=== PATIENT | female | born 1995 | race Caucasian/White ===

== ENCOUNTER → 2017-05-24 06:20 | Outpatient (CLI) | payer MEDICAID, SELFPAY ==
--- NOTE | 2017-05-24 06:31 | MRI_ITS ---
STUDY: MRI RIGHT FOREFOOT WITHOUT CONTRAST REASON FOR EXAM: Female, 22 years old. Cellulitis. Neuroma surgery May 02, 2017 TECHNIQUE: Standardized fat and water weighted pulse sequences were obtained in all 3 orthogonal planes. COMPARISON: None. FINDINGS: There is postoperative changes on the dorsal aspect of the second intermetatarsal and interdigital region. There is adjacent edema. No abscess. Normal metatarsophalangeal joint of the hallux. There is a bipartite fibula sesamoid. Normal interphalangeal joint of the hallux. Normal proximal and distal phalanges of the great toe. Normal medial and lateral heads of the flexor hallucis brevis tendons. Normal flexor and extensor hallucis longus tendons. Normal second through fifth metatarsophalangeal (MTP) joints. Normal interphalangeal joints of the second through fifth toes. Normal proximal, middle and distal phalanges of the second through fifth toes. Normal first through fourth intermetatarsal spaces. Normal flexor and extensor tendons of the second through fifth toes. Normal visualized metatarsi. Normal intrinsic muscles of the forefoot. MRI/Lower Ext/No Jt/w/o IMPRESSION: Postoperative changes with edema. No dominant abscess or collection. Electronically Signed: Fito Hoyt MD at 14:59 EST , Service support ,
== END ==
PROVIDERS: Visit Provider Podiatrist Foot & Ankle Surgery
DX: L03.119 Cellulitis of unspecified part of limb (principal); Z98.890 Other specified postprocedural states
CPT/HCPCS: 73718

== ENCOUNTER 2017-05-25 12:25 | Inpatient (IN) | payer MEDICAID, SELFPAY ==
[2017-05-25 12:41] VITALS: BMI 52.3; BMI 52.4
[2017-05-25 12:50] VITALS: BP 153/85; PULSE 120; RESP 20; TEMP 37.1; O2SAT 98
--- NOTE | 2017-05-25 14:59 | PCM.HP.STD ---
Problem List (1) Vitamin D deficiency Status: Chronic (2) Anxiety Status: Chronic (3) Depression Status: Chronic (4) Tachycardia Status: Chronic (5) Migraine Status: Chronic (6) Seasonal allergies Status: Chronic (7) Cellulitis of right foot Status: Acute History of Present Illness Date of Admission: 05/25/17 Chief Complaint: Right foot incision redness and drainage The patient is a 22 year old F who presents from Dr. Michelle, Podiatry office due to right foot incision redness and drainage. 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 On follow-up appointment approximately 1 week ago, patient was noted to have purulent drainage from incision site as well as redness. She was started on ciprofloxacin and Bactrim at that time. She states her cultures showed skin may. Patient had additional follow-up with podiatry today to check for improvement with antibiotic therapy. Patient states there was further purulent drainage from incision site. Patient states Dr. Michelle mentioned he thought she may be allergic to the dissolvable sutures. Per patient, her biological father is allergic to sutures. Podiatry plans on debridement of right foot surgical site tomorrow. Patient's past medical history includes chronic migraines, anxiety, depression, seasonal allergies, vitamin D deficiency. She reports an anaphylactic reaction to penicillins when she was an infant's. Patient states her mom told her she stopped breathing. Patient denies fever, chills. Denies pain of the right foot. She is able to bear weight without difficulty. She denies nausea, vomiting. Denies other associated complaints. Past Medical History Past Medical History (Chronic Problems): Chronic Problems Vitamin D deficiency (Chronic) Anxiety (Chronic) Depression (Chronic) Tachycardia (Chronic) Migraine (Chronic) Seasonal allergies (Chronic) Allergies amoxicillin Allergy (Verified 01/17/17 20:43) Anaphylaxis Penicillins Allergy (Verified 01/17/17 20:43) Anaphylaxis spider venom Allergy (Verified 01/17/17 20:43) Swelling venom-honey bee Allergy (Verified 01/17/17 20:43) Anaphylaxis Home Medications: Ambulatory Orders Medication Instructions Recorded Cholecalciferol (Vitamin D3) 1,000 unit PO DAILY 01/17/17 [Vitamin D3] Cyanocobalamin (Vitamin B-12) 1,000 mcg PO DAILY 01/17/17 [Vitamin B12] Duloxetine Hcl [Cymbalta] 60 mg PO DAILY 01/17/17 Propranolol HCl 10 mg PO DAILY 01/17/17 Riboflavin [Vitamin B-2] 50 mg PO DAILY 01/17/17 Bupropion HCl [Wellbutrin Xl] 150 mg PO DAILY 05/25/17 Calcium Carbonate [Tums] 500 mg PO Q6H PRN PRN 05/25/17 Fexofenadine HCl [Holly Allergy] 60 mg PO BID PRN PRN 05/25/17 Fluticasone 0.05% [Flonase Nasal 1 spray NASAL BID PRN PRN 05/25/17 [place]] Surgical History: tonsillectomy, - - Status post right foot Mann's neuroma surgery. [place] teeth extraction. 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 Lives: Spouse/ Significant Other Smoking Status: Never smoker Alcohol: Rare Drugs: None - *Family History Maternal History Items: Seizures Paternal History Items: Diabetes, Heart Disease Review of Systems Constitutional: Denies: Chills, Fever, Weight Change HEENT: Denies: Head Aches, Sinus Congestion, Sinus Drainage Cardiovascular: Denies: Chest Pain, Palpitations Respiratory: Denies: Cough, Shortness of breath at rest, Sputum production Gastrointestinal: Denies: Abdominal Pain, Nausea, Vomiting Genitourinary: Denies: Dysuria Musculoskeletal: Denies: Joint Pain, Joint Tenderness Skin: Denies: Rash, Wounds Neurological: Denies: Numbness, Tingling, Focal weakness Psychiatric: Reports: Anxiety, Depression Hematologic/ Lymphatic: Denies: Easy Bruising, Easy Bleeding VTE Information - Inpt Only VTE Present on Admission: No VTE Mechan Device Prophylaxis: None Reason prophylaxis not ordered:: Treatment Not Indicated Patient Problems: Active and Suspected Problems Cellulitis of right foot (Acute) - Physical Exam General: Alert, Oriented x3, Cooperative, No apparent distress HEENT: Atraumatic, PERRLA, EOMI, Normocephalic Neck: Supple, No JVD, Negative Carotid Bruits Lungs: Clear to auscultation, Normal air movement Cardiovascular: Normal S1, Normal S2, No murmurs, Tachycardic Abdomen: Bowel Sounds Present, Soft, Non Tender, Obese Extremities: No clubbing, No cyanosis, No edema, Capillary Refill Less than 3 Seconds Skin: No rashes, No breakdown, - - Postop incision right medial foot erythematous, blanchable. Small amount of purulence drainage. Musculoskeletal: No Tenderness to Palpation of Joints or Extremities Neurological: Cranial nerves II-XII grossly intact, Neuro grossly intact Psych/Mental Status: Normal Affect, Appropriate Vital Signs Temp Pulse Resp BP Pulse Ox 98.8 F 120 H 20 H 153/85 H 98 05/25/17 12:50 05/25/17 12:50 05/25/17 12:50 05/25/17 12:50 05/25/17 12:50 Oxygen Delivery Method Room Air Weight: 138.346 kg Body Mass Index (BMI) 52.3 Laboratory Tests Past 24 Hrs 05/25/17 05/25/17 14:42 14:42 WBC Pending RBC Pending Hgb Pending Hct Pending MCV Pending MCH Pending MCHC Pending RDW Pending RDW Differential Pending Plt Count Pending Sodium Pending Potassium Pending Chloride Pending Carbon Dioxide Pending Anion Gap Pending BUN Pending Creatinine Pending Est GFR (MDRD) Af Amer Pending Est GFR (MDRD) Non-Af Pending BUN/Creatinine Ratio Pending Glucose Pending Calcium Pending Total Bilirubin Pending AST Pending ALT Pending Alkaline Phosphatase Pending Total Protein Pending Albumin Pending Assessment/Plan Active and Suspected Problems Cellulitis of right foot (Acute) 1. Right foot cellulitis status post Mann's neuroma surgery, failed outpatient antibiotic therapy-patient underwent surgery for Mann's neuroma on right foot 05/04/[address] Michelle, podiatry who she has been following with as outpatient. Patient was started on ciprofloxacin and Bactrim approximately 1 week ago due to increased redness of the foot and purulent drainage. She returned for follow-up appointment today and had continued erythema and drainage from incision site. Dr. Michelle plans for I&D tomorrow. Patient states previous wound cultures showed normal skin may. These were completed at [facility] and not available in our records. Wound nurse evaluated patient and was able to get sample for culture. Patient reports an allergy to penicillins. Right foot with erythema surrounding incision site which is blanchable, minute amount of purulent drainage was able to be extracted with pressing of the site. Patient denies pain. MRI of the right foot showed postoperative changes with edema. No dominant abscess or collection. NPO at midnight. PRN pain regimen. Wound RN consulted. Wound culture sent. IV vancomycin. Consult ID. Check MRSA PCR. 2. Tachycardia/palpitations-continue propanolol. 3. Seasonal allergies-continue Holly and Flonase regimen. 4. Chronic migraines-continue propanolol. 5. Vitamin D deficiency-continue vitamin D supplementation. 6. Anxiety/depression-continue bupropion and duloxetine regimen. 7. Obesity-encouraged lifestyle and dietary modifications. DVT prophylaxis-not indicated due to low risk. This patient was seen by FLORENTIN Camacho under the supervision of Dr. Lopez.
[2017-05-25 15:06] LABS: Hemoglobin 13.1 g/dl (12.0-15.0); Mean Corpuscular Volume 81.5 fL (81-99); Mean Platelet Vol. 9.7 fl (6.2-12.0); Platelet Count 383 K/mm3 (150-450); RBC Distribution Width CV 15.3 % (11.6-14.6); Red Blood Count 5.03 M/mm3 (4.2-5.4); White Blood Count 8.8 K/mm3 (4.4-11.0)
[2017-05-25 15:13] LABS: Scan Indicated on CBC? Y/N NO
[2017-05-25 15:28] LABS: ALB/GLOB Ratio 0.8 RATIO (0.9-2.4); AST(SGOT) 13 U/L (15-37); Alanine Aminotransfer ALT/SGPT 25 U/L (13-56); Albumin, Serum 3.7 g/dL (3.2-5.0); Alkaline Phosphatase 81 U/L (45-117); Anion Gap 11 (5-15); BUN 12 mg/dL (7-18); BUN/Creat Ratio 10.6 RATIO (10-20); Calcium,Total 9.1 mg/dL (8.5-10.1); Chloride 101 mmol/L (98-107); Creatinine, Serum 1.13 mg/dL (0.55-1.02); EST Glomerular Filtration Rate 63 mL/min (>60); Est Glom Filt Rate - Afr Amer 76 mL/min (>60); Estimated Creatinine Clearance 66.29 ml/min; Globulin 4.6 g/dL (2.2-4.2); Glucose 88 mg/dL (74-106); Potassium 3.9 mmol/L (3.5-5.1); Protein, Total 8.3 g/dL (6.4-8.2); Sodium Level 138 mmol/L (136-145)
[2017-05-25] MEDS: 0.9% NaCl Peripheral Flush Adult/Peds IV ×3 (15:45→23:54)
[2017-05-25] MEDS: DiphenhydrAMINE 50 MG/ML Syringe 25 MG IV ×2 (17:42→23:54)
[2017-05-25 19:15] LABS: M R Staph aureus DNA By PCR Negative (Negative); Probe Check PASS; Specimen Processing Control PASS; Staph aureus DNA By PCR NEGATIVE (Negative)
[2017-05-25 20:25] VITALS: BP 114/47; PULSE 121; RESP 18; TEMP 36.8; O2SAT 98
[2017-05-25] MEDS: Propranolol 10 MG Tablet PO (22:03)
[2017-05-26] VITALS (9 sets, daily range): BP systolic 107–124; BP diastolic 57–84; PULSE 98–110; RESP 18; TEMP 36.6–37.2; O2SAT 97–100; BMI 52.3
--- NOTE | 2017-05-26 05:55 | EKG12_ITS ---
Test Reason : PRE-OP Blood Pressure : / mmHG Vent. Rate : 096 BPM Atrial Rate : 096 BPM P-R Int : 150 ms QRS Dur : 074 ms QT Int : 366 ms P-R-T Axes : 027 016 020 degrees QTc Int : 462 ms Normal sinus rhythm Normal ECG When compared with ECG of 17-JAN-2017 20:44, No significant change was found Confirmed by LAUREL MILLER, CAL ([id number]), editor dictionary JAYDA MCDOWELL ([id number]) on 06/08/2017 1:33:54 PM Referred By: ISAAC Confirmed By:CAL BARRAGAN MD
[2017-05-26] MEDS: Propranolol 10 MG Tablet PO ×3 (06:00→22:16)
[2017-05-26 06:18] LABS: Absolute Neutrophil Count 4.7 X10^3/uL (2.0-7.7); Basophil# 0.04 X10^3/uL; Basophil% 0.5 % (0-1); Eosinophil# 0.25 X10^3/uL; Eosinophils% 3.1 % (0-5); Hematocrit 36.7 % (37-47); Hemoglobin 11.4 g/dl (12.0-15.0); Lymphocyte % 31.8 % (19-41); Mean Corp Hgb Conc 31.1 g/gl (32-36); Mean Corpuscular Hgb 25.6 pg (27.0-32.0); Mean Corpuscular Volume 82.3 fL (81-99); Mean Platelet Vol. 9.9 fl (6.2-12.0); Monocyte# 0.54 X10^3/uL; Monocyte% 6.6 % (0-10); Neutrophil # 4.73 X10^3/uL (2.7-7.7); Neutrophil % 57.8 % (47-70); Platelet Count 333 K/mm3 (150-450); RBC Distribution Width CV 15.6 % (11.6-14.6); RBC Distribution Width SD 46.9 fl (35.1-43.9); Red Blood Count 4.46 M/mm3 (4.2-5.4); White Blood Count 8.2 K/mm3 (4.4-11.0)
[2017-05-26 06:26] LABS: POSITIVE COUNT NO; POSITIVE DIFFERENTIAL NO; POSITIVE MORPHOLOGY NO
[2017-05-26 06:33] LABS: Anion Gap 8 (5-15); BUN 16 mg/dL (7-18); BUN/Creat Ratio 15.1 RATIO (10-20); Calcium,Total 8.6 mg/dL (8.5-10.1); Chloride 102 mmol/L (98-107); Creatinine, Serum 1.06 mg/dL (0.55-1.02); EST Glomerular Filtration Rate 68 mL/min (>60); Est Glom Filt Rate - Afr Amer 82 mL/min (>60); Estimated Creatinine Clearance 70.67 ml/min; Glucose 87 mg/dL (74-106); Sodium Level 135 mmol/L (136-145)
[2017-05-26 07:26] LABS: Internal QC Validated? YES +Cl - CLEAR BKGD; Pregnancy, Urine Negative Negative
[2017-05-26] MEDS: DULoxetine Hcl 60 MG Capsule PO (08:38)
--- NOTE | 2017-05-26 09:49 | CASEMGMT ---
Addendum entered by Odalys Gibbs 05/26/17 10:05: Chart Review: LACYashira Strata 1 Original Note: The patient is a 22 year old F who presents from Dr. Michelle, Podiatry office due to right foot incision redness and drainage. 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 On follow-up appointment approximately 1 week ago, patient was noted to have purulent drainage from incision site as well as redness. She was started on ciprofloxacin and Bactrim at that time. She states her cultures showed skin may. Patient had additional follow-up with podiatry today to check for improvement with antibiotic therapy. Patient states there was further purulent drainage from incision site. Patient states Dr. Michelle mentioned he thought she may be allergic to the dissolvable sutures. Podiatry plans on debridement of right foot surgical site tomorrow. Patient's past medical history includes chronic migraines, anxiety, depression, seasonal allergies, vitamin D deficiency. She is able to bear weight without difficulty. Patient is normally independent, drives, and is a student. Patient does have insurance coverage, including a prescription benefit. The patient uses [facility]. No home-going needs are identified at this time. RN CM will continue to follow hospital course and will provide case management interventions should the need arise. Disposition Plan: Home with support of family TMERYL Barrios, RN-BC, CCM
--- NOTE | 2017-05-26 10:27 | PCM.PROGNOTE ---
Patient Problems: Active and Suspected Problems Cellulitis of right foot (Acute) Subjective: Chief complaint: Follow-up after admission for possible right foot cellulitis in context of recent history of right foot surgery for Mann's neuroma. Patient seen and examined. No acute events overnight. This morning, she complained of bilateral hand itching because of the vancomycin. The skin rash that she got yesterday after the vancomycin has been getting better. Denies any other complaints. Denied fever chills. Her vital signs are stable. - Physical Exam General: Alert, Oriented x3, Cooperative, No apparent distress HEENT: Atraumatic, PERRLA, EOMI Oral: Moist Mucosa, No Gingival or Mucosal Lesions/ Ulcerations Neck: Supple, No JVD, Trachea Midline, Thyroid Normal Size and Texture Lungs: Clear to auscultation, Normal air movement, No rhonchi, No wheeze, No rales Cardiovascular: Regular rate, Regular Rhythm, Normal S1, Normal S2, PMI Normal Abdomen: Bowel Sounds Present, Soft, Non Tender, Non-Distended, No Hepato-splenomegaly, Obese Extremities: No clubbing, No cyanosis, No edema Skin: No rashes, Ulcer/ Wound Lymphatic: No Cervical, Supraclavicular, or Inguinal Adenopathy Neurological: Cranial nerves II-XII grossly intact, Motor Exam 5/5 strength throughout Psych/Mental Status: Normal Affect, Appropriate, Alert and oriented to time, place, person, mood and affect Vital Signs Temp Pulse Resp BP Pulse Ox 98.9 F 106 H 18 116/80 100 05/26/17 08:40 05/26/17 08:40 05/26/17 08:40 05/26/17 08:40 05/26/17 08:40 Oxygen Delivery Method Room Air Weight: 304 lb 14.389 oz Body Mass Index (BMI) 52.3 Intake and Output for Last 24 Hours 05/24/17 05/25/17 05/26/17 23:59 23:59 23:59 Intake Total 1550 / 1550 300 / 300 Balance 1550 / 1550 300 / 300 Laboratory Tests Past 24 Hrs 05/25/17 05/25/17 05/25/17 14:42 14:42 15:10 WBC 8.8 RBC 5.03 Hgb 13.1 Hct 41.0 MCV 81.5 MCH 26.0 L MCHC 32.0 RDW 15.3 H RDW Differential 45.0 H Plt Count 383 MPV 9.7 Immature Gran % (Auto) Neut % (Auto) Lymph % (Auto) [place] % (Auto) Eos % (Auto) Baso % (Auto) Absolute Neuts (auto) Absolute Lymphs (auto) Total Counted Sodium 138 Potassium 3.9 Chloride 101 Carbon Dioxide 26.0 Anion Gap 11 BUN 12 Creatinine 1.13 H Estim Creat Clear Calc 66.29 Est GFR (MDRD) Af Amer 76 Est GFR (MDRD) Non-Af 63 BUN/Creatinine Ratio 10.6 Glucose 88 Calcium 9.1 Total Bilirubin 0.30 AST 13 L ALT 25 Alkaline Phosphatase 81 Total Protein 8.3 H Albumin 3.7 Globulin 4.6 H Albumin/Globulin Ratio 0.8 L Urine Test S.aureus Protein A PCR NEGATIVE MRSA (PCR) Negative 05/26/17 05/26/17 05/26/17 05:46 05:46 07:05 WBC 8.2 RBC 4.46 Hgb 11.4 L Hct 36.7 L MCV 82.3 MCH 25.6 L MCHC 31.1 L RDW 15.6 H RDW Differential 46.9 H Plt Count 333 MPV 9.9 Immature Gran % (Auto) 0.200 Neut % (Auto) 57.8 Lymph % (Auto) 31.8 [place] % (Auto) 6.6 Eos % (Auto) 3.1 Baso % (Auto) 0.5 Absolute Neuts (auto) 4.7 Absolute Lymphs (auto) 2.60 Total Counted Not Reportable Sodium 135 L Potassium 4.0 Chloride 102 Carbon Dioxide 25.0 Anion Gap 8 BUN 16 Creatinine 1.06 H Estim Creat Clear Calc 70.67 Est GFR (MDRD) Af Amer 82 Est GFR (MDRD) Non-Af 68 BUN/Creatinine Ratio 15.1 Glucose 87 Calcium 8.6 Total Bilirubin AST ALT Alkaline Phosphatase Total Protein Albumin Globulin Albumin/Globulin Ratio Urine Test Negative S.aureus Protein A PCR MRSA (PCR) Assessment/Plan Active and Suspected Problems Cellulitis of right foot (Acute) This is a 22 years old female patient directly admitted to the hospital because of right foot incision redness and drainage in context of recent history of surgery for Mann's neuroma and she was found to have suspected right foot cellulitis. #1 suspected right foot cellulitis: With failure of outpatient therapy. It is not clear if this patient has acute cellulitis or this is seroma. She was started on IV vancomycin yesterday and she developed skin rash, vancomycin was discontinued. She is afebrile, no leukocytosis. Infectious disease consulted, recommended to restart vancomycin was on fusion as well as oral ciprofloxacin. Podiatry surgery consulted, plan for surgery this afternoon. #2 tachycardia/palpitation: Heart rate has been around 100, blood pressure stable. Continue propranolol. #3 anxiety/depression: Continue Wellbutrin and Cymbalta. #4 seasonal allergies: Continue Benadryl and Flonase. #5 migraine: Continue propranolol. #6 DVT prophylaxis: Low risk patient, no prophylaxis indicated. This note was generated with [employer] dictation software. It may contain incorrect words, spelling, and punctuation that were not noted in checking the note before signing. Code Visit Inpatient E&M: 57239 Subs Hosp L2
--- NOTE | 2017-05-26 10:52 | CON.PCM_ITS ---
Problem List (1) Cellulitis of right foot Status: Acute Reason for Consult: foot infection Consulted by: Dr. Lopez History of Present Illness: The patient is a 22 year old F with 04/29/17 R foot Mann's neuroma resection by Dr. Michelle. Had been doing well until a week ago when she noticed redness around incision site. Saw Dr. Michelle, clear/bloody fluid was able to be expressed, and some stitches removed. Started on bactrim/cipro. Redness improved somewhat, went back yesterday, pus was able to be expressed, so sent to hospital. Given iv vanc, developed redness/itching which quickly resolved with stopping infusion and giving benadryl. OR planned for today for exploration/debridement. No fever, no h/o MRSA. Full ROS performed and neg except as noted above. - Medical History Past Medical History (Chronic Problems): Chronic Problems Vitamin D deficiency (Chronic) Anxiety (Chronic) Depression (Chronic) Tachycardia (Chronic) Migraine (Chronic) Seasonal allergies (Chronic) Allergies/Adverse Reactions: Allergies amoxicillin Allergy (Verified 01/17/17 20:43) Anaphylaxis Penicillins Allergy (Verified 01/17/17 20:43) Anaphylaxis spider venom Allergy (Verified 01/17/17 20:43) Swelling venom-honey bee Allergy (Verified 01/17/17 20:43) Anaphylaxis vancomycin Adverse Reaction (Verified 05/26/17 10:43) Itching and redness Red Man Home Medications: Ambulatory Orders Medication Instructions Recorded Cholecalciferol (Vitamin D3) 1,000 unit PO DAILY 01/17/17 [Vitamin D3] Cyanocobalamin (Vitamin B-12) 1,000 mcg PO DAILY 01/17/17 [Vitamin B12] Duloxetine Hcl [Cymbalta] 60 mg PO DAILY 01/17/17 Propranolol HCl 10 mg PO DAILY 01/17/17 Riboflavin [Vitamin B-2] 50 mg PO DAILY 01/17/17 Bupropion HCl [Wellbutrin Xl] 150 mg PO DAILY 05/25/17 Calcium Carbonate [Tums] 500 mg PO Q6H PRN PRN 05/25/17 Fexofenadine HCl [Holly Allergy] 60 mg PO BID PRN PRN 05/25/17 Fluticasone 0.05% [Flonase Nasal 1 spray NASAL BID PRN PRN 05/25/17 [place]] - Social History SMOKING STATUS:: Never smoker Vital Signs Temp Pulse Resp BP Pulse Ox 98.9 F 106 H 18 116/80 100 05/26/17 08:40 05/26/17 08:40 05/26/17 08:40 05/26/17 08:40 05/26/17 08:40 Oxygen Delivery Method Room Air Weight: 138.3 kg Body Mass Index (BMI) 52.3 Laboratory Tests Past 24 Hrs 05/25/17 05/25/17 05/25/17 14:42 14:42 15:10 WBC 8.8 RBC 5.03 Hgb 13.1 Hct 41.0 MCV 81.5 MCH 26.0 L MCHC 32.0 RDW 15.3 H RDW Differential 45.0 H Plt Count 383 MPV 9.7 Immature Gran % (Auto) Neut % (Auto) Lymph % (Auto) [place] % (Auto) Eos % (Auto) Baso % (Auto) Absolute Neuts (auto) Absolute Lymphs (auto) Total Counted Sodium 138 Potassium 3.9 Chloride 101 Carbon Dioxide 26.0 Anion Gap 11 BUN 12 Creatinine 1.13 H Estim Creat Clear Calc 66.29 Est GFR (MDRD) Af Amer 76 Est GFR (MDRD) Non-Af 63 BUN/Creatinine Ratio 10.6 Glucose 88 Calcium 9.1 Total Bilirubin 0.30 AST 13 L ALT 25 Alkaline Phosphatase 81 Total Protein 8.3 H Albumin 3.7 Globulin 4.6 H Albumin/Globulin Ratio 0.8 L Urine Test S.aureus Protein A PCR NEGATIVE MRSA (PCR) Negative 05/26/17 05/26/17 05/26/17 05:46 05:46 07:05 WBC 8.2 RBC 4.46 Hgb 11.4 L Hct 36.7 L MCV 82.3 MCH 25.6 L MCHC 31.1 L RDW 15.6 H RDW Differential 46.9 H Plt Count 333 MPV 9.9 Immature Gran % (Auto) 0.200 Neut % (Auto) 57.8 Lymph % (Auto) 31.8 [place] % (Auto) 6.6 Eos % (Auto) 3.1 Baso % (Auto) 0.5 Absolute Neuts (auto) 4.7 Absolute Lymphs (auto) 2.60 Total Counted Not Reportable Sodium 135 L Potassium 4.0 Chloride 102 Carbon Dioxide 25.0 Anion Gap 8 BUN 16 Creatinine 1.06 H Estim Creat Clear Calc 70.67 Est GFR (MDRD) Af Amer 82 Est GFR (MDRD) Non-Af 68 BUN/Creatinine Ratio 15.1 Glucose 87 Calcium 8.6 Total Bilirubin AST ALT Alkaline Phosphatase Total Protein Albumin Globulin Albumin/Globulin Ratio Urine Test Negative S.aureus Protein A PCR MRSA (PCR) - Other Studies Radiology: [] reviewed Other Studies: [] Route of nutrition/ use of supplements: [] Nutritional Intake: [] IV Site: [] Santos Catheter: [] - Physical Exam General: Alert, Oriented x3, Cooperative, No apparent distress HEENT: Atraumatic, PERRLA, EOMI Neck: Supple, No Nodes Lungs: Clear to auscultation, Normal air movement Cardiovascular: Regular rate, Normal S1, Normal S2, No murmurs Abdomen: Bowel Sounds Present, Soft, Non Tender, Non-Distended, Obese Extremities: No clubbing, No cyanosis, No edema Skin: Incision - R foot incision wrapped Musculoskeletal: No Tenderness to Palpation of Joints or Extremities Neurological: Cranial nerves II-XII grossly intact Psych/Mental Status: Normal Affect, Appropriate - Assessment/Plan Antibiotics: [] Assessment/Plan: [] Active and Suspected Problems Cellulitis of right foot (Acute) - concern for deep vs superficial surgical site infection. She reports her dad has had reaction to sutures in the past. H /o anaphylaxis with PCN as an infant. Had [place] with vanc last night. Had some improvement with bactrim/cipro as an outpatient. PCR neg for staph aureus here. Will restart vanc at slower infusion rate and restart cipro for GNR coverage while surg cxs are pending. Thank you, will follow.
[2017-05-26] MEDS: Hydrocortisone 2.5% Crm 1 APPLIC TOPICAL ×2 (11:38→19:37)
--- NOTE | 2017-05-26 11:58 | NURSING ---
report called to [facility] for surgery. spoke with HERMILA Sampson.
--- NOTE | 2017-05-26 12:13 | SUR.PREOP ---
PT. TO [facility] FROM [facility]. SHE DENIES PAIN OR OTHER C/O AT THIS TIME. FAMILY AT BEDSIDE.
--- NOTE | 2017-05-26 12:55 | CON.PCM_ITS ---
Reason for Consult Date of Consultation: 05/26/17 Reason for Consultation: CELLULITIS OF RIGHT FOOT History of Present Illness: The patient is a 22 year old F who underwent neuroma excision on May 02 of her right foot. she was placed on bactrim as prophylaxis for 5 days following surgery. she was doing very well until last tuesday when she developed some mild redness to her foot but did not call the office to inform us. she was seen on Tuesday last week where there was redness to her right foot, mild serous drainage. a sterile culture was performed and has now since finalized as gram postitive cocci/skin may. wbc last tuesday was 11.6 but has now since normalized being on bactrim/cipro. I evaluated patient this past tuesday and her redness to her foot was improving but there was still redness to interspace distally. MRI was ordered and was found to be negative for osteomyelitis or abscess. I evaluated patient again yesterday and found similar findings as tuesday with redness to distal incision now with sero purulent discharge. given this persistent redness to this location, I did discuss admission to hospital for incision and drainage of right foot with irrgiation fo wound and removal of deep suture. it should be noted that patient informs me last week that her father had similar issues with suture. patient denies n/v/f/c. she is on vancomycin and cipro. she did have reaction to vanco but felt to be due to infusion time. [] Past Medical History Past Medical History (Chronic Problems): Chronic Problems Vitamin D deficiency (Chronic) Anxiety (Chronic) Depression (Chronic) Tachycardia (Chronic) Migraine (Chronic) Seasonal allergies (Chronic) Allergies amoxicillin Allergy (Verified 01/17/17 20:43) Anaphylaxis Penicillins Allergy (Verified 01/17/17 20:43) Anaphylaxis spider venom Allergy (Verified 01/17/17 20:43) Swelling venom-honey bee Allergy (Verified 01/17/17 20:43) Anaphylaxis vancomycin Adverse Reaction (Verified 05/26/17 10:43) Itching and redness Red Man Home Medications: Ambulatory Orders Medication Instructions Recorded Cholecalciferol (Vitamin D3) 1,000 unit PO DAILY 01/17/17 [Vitamin D3] Cyanocobalamin (Vitamin B-12) 1,000 mcg PO DAILY 01/17/17 [Vitamin B12] Duloxetine Hcl [Cymbalta] 60 mg PO DAILY 01/17/17 Propranolol HCl 10 mg PO DAILY 01/17/17 Riboflavin [Vitamin B-2] 50 mg PO DAILY 01/17/17 Bupropion HCl [Wellbutrin Xl] 150 mg PO DAILY 05/25/17 Calcium Carbonate [Tums] 500 mg PO Q6H PRN PRN 05/25/17 Fexofenadine HCl [Holly Allergy] 60 mg PO BID PRN PRN 05/25/17 Fluticasone 0.05% [Flonase Nasal 1 spray NASAL BID PRN PRN 05/25/17 [place]] Surgical History: tonsillectomy, - - Status post right foot Mann's neuroma surgery. [place] teeth extraction. 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 good mood and affect derm: the right foot has surgical incision that is healed proximally but has persistent redness distally with eschar. there is jarred-wound erythema along distal incision. scant drainage noted on exam. m/s. no pain to right foot. 2nd and 3rd toes are numb consistent with neuroma excision. - Physical Exam Vital Signs Temp Pulse Resp BP Pulse Ox 98.8 F 109 H 18 114/62 100 05/26/17 11:33 05/26/17 11:33 05/26/17 11:33 05/26/17 11:33 05/26/17 11:33 Oxygen Delivery Method Room Air Weight: 138.3 kg Body Mass Index (BMI) 52.3 Intake and Output for Last 24 Hours 05/24/17 05/25/17 05/26/17 23:59 23:59 23:59 Intake Total 1550 / 1550 600 / 600 Balance 1550 / 1550 600 / 600 Laboratory Tests Past 24 Hrs 05/25/17 05/25/17 05/25/17 14:42 14:42 15:10 WBC 8.8 RBC 5.03 Hgb 13.1 Hct 41.0 MCV 81.5 MCH 26.0 L MCHC 32.0 RDW 15.3 H RDW Differential 45.0 H Plt Count 383 MPV 9.7 Immature Gran % (Auto) Neut % (Auto) Lymph % (Auto) [place] % (Auto) Eos % (Auto) Baso % (Auto) Absolute Neuts (auto) Absolute Lymphs (auto) Total Counted Sodium 138 Potassium 3.9 Chloride 101 Carbon Dioxide 26.0 Anion Gap 11 BUN 12 Creatinine 1.13 H Estim Creat Clear Calc 66.29 Est GFR (MDRD) Af Amer 76 Est GFR (MDRD) Non-Af 63 BUN/Creatinine Ratio 10.6 Glucose 88 Calcium 9.1 Total Bilirubin 0.30 AST 13 L ALT 25 Alkaline Phosphatase 81 Total Protein 8.3 H Albumin 3.7 Globulin 4.6 H Albumin/Globulin Ratio 0.8 L Urine Test S.aureus Protein A PCR NEGATIVE MRSA (PCR) Negative 05/26/17 05/26/17 05/26/17 05:46 05:46 07:05 WBC 8.2 RBC 4.46 Hgb 11.4 L Hct 36.7 L MCV 82.3 MCH 25.6 L MCHC 31.1 L RDW 15.6 H RDW Differential 46.9 H Plt Count 333 MPV 9.9 Immature Gran % (Auto) 0.200 Neut % (Auto) 57.8 Lymph % (Auto) 31.8 [place] % (Auto) 6.6 Eos % (Auto) 3.1 Baso % (Auto) 0.5 Absolute Neuts (auto) 4.7 Absolute Lymphs (auto) 2.60 Total Counted Not Reportable Sodium 135 L Potassium 4.0 Chloride 102 Carbon Dioxide 25.0 Anion Gap 8 BUN 16 Creatinine 1.06 H Estim Creat Clear Calc 70.67 Est GFR (MDRD) Af Amer 82 Est GFR (MDRD) Non-Af 68 BUN/Creatinine Ratio 15.1 Glucose 87 Calcium 8.6 Total Bilirubin AST ALT Alkaline Phosphatase Total Protein Albumin Globulin Albumin/Globulin Ratio Urine Test Negative S.aureus Protein A PCR MRSA (PCR) Assessment/Plan Active and Suspected Problems Cellulitis of right foot (Acute) patient has been examined and informed of current findings. I did discuss this case in great detail. she has persistent redness of right foot. mri is negative for deep abscess. she has been on bactrim/cipro but continues to have redness along her toes. I have discussed continued monitoring vs incision and drainage, removal of deep suture and irrigation of wound. patient does inform me that her father had similar issue requiring surgery. I have informed patient of risks and benefits/alternatives to this procedure. certain risks include but not limited to infection, pain, swelling, bleeding, hematoma, wound dehiscence, need for advanced wound care/wound vac, osteomyelitis, loss of toe, cardiac arrest, dvt, . Patient again informed she could monitor this but certainly given the failed response out patient and persistent erythema at toes , I think it is likely in her best interest to proceed with i&d. mom and patient agree. I will plan for I&D today. will get deep culture. will defer to ID for antibiotics. will follow-up culture and can arrange discharge once medically cleared and antibiotics determined by ID. patient understands all risks of procedure and freely consents to proceed.
--- NOTE | 2017-05-26 14:12 | PCM.IMDPSTOP ---
Immediate Post-Op Note Date of Procedure: 05/26/17 Primary Surgeon/Physician: Sam Michelle DPM shelver: Sam Michelle Pre-Operative Diagnosis: cellulitis right foot Post-Operative Diagnosis: cellulitis of right foot Surgery/Procedure Performed:: incision and drainage of right foot Description of Surgical Findings:: superficial suture abscess, no purulence deep Estimated Blood Loss: 5 ml Specimen's removed: deep wound culture Drains: none Type of Anesthesia:: Local MAC
--- NOTE | 2017-05-26 14:15 | OP.PN_ITS ---
Immediate Post-Op Note Date of Procedure: 05/26/17 Primary Surgeon/Physician: Sam Michelle DPM manager outpatient: Sam Michelle Pre-Operative Diagnosis: cellulitis right foot Post-Operative Diagnosis: cellulitis of right foot Surgery/Procedure Performed:: incision and drainage of right foot Description of Surgical Findings:: superficial suture abscess, no purulence deep Estimated Blood Loss: 5 ml Specimen's removed: deep wound culture Drains: none Type of Anesthesia:: Local MAC
[2017-05-26] MEDS: Ciprofloxacin 500 MG Tablet PO ×2 (16:02→22:16)
[2017-05-26] MEDS: Acetaminophen 500 MG Tablet PO (16:50)
[2017-05-26] MEDS: DiphenhydrAMINE 50 MG/ML Syringe 25 MG IV (19:34)
[2017-05-26] MEDS: 0.9% NaCl Peripheral Flush Adult/Peds IV (19:34)
--- NOTE | 2017-05-26 19:58 | PCM.OPRPT ---
Report of Operation Date of Procedure: 05/26/17 Pre-Operative Diagnosis: cellulitis right foot Post-Operative Diagnosis: cellulitis of right foot Surgery/Procedure Performed:: incision and drainage of right foot Description of Surgical Findings:: superficial suture abscess, no purulence deep living skills advisor: Sam Michelle Type of Anesthesia:: Local MAC Specimen's removed: deep wound culture Drains: none Estimated Blood Loss (mL): 5 ml Description of Procedure: Patient is a very pleasant 22 year old female who had neuroma excision on May 02, 2017. her post-op course was rather benign until last tuesday when she developed some mild redness to her distal incision. she did not contact the office to inform us of the change in appearance to wound. she was seen on Tuesday of last week at which time, we evaluated her foot and found her to have redness present. a sterile culture was performed and found to grow gram positive cocci/skin may. she has been on bactrim/cipro. majority of the redness has resolved but she was found to have residual redness at distal incision yesterday with the production of serous/purulent drainage. we discussed this finding with patient. we discussed continued monitoring vs admission to hospital and plan for incision and drainage. given the redness present and not completely improving with antibiotic, given the drainage present to distal incision and fear of suture abscess, patient agreeable to admission to hospital for I&D. MRI was performed earlier this week with no deep abscess or osteomyelitis. I did discuss case with patient and plan for opening of her foot, irrigating this wound, obtaining deep wound culture with primary closure. I again discussed continued monitoring but given chronic redness to her foot, patient agreeable to I&D. It should be noted that patient father had similar issue with deep suture requiring same operation. I did discuss risks of this procedure not limited to infection, pain, swelling, bleeding, hematoma, wound dehiscence, need for advanced wound care not limited to wound vac or wound care supplies, loss of toe, loss of foot, cardiac arrest, dvt, . patient understands following the procedure, she will need to remain mostly nwb or if necessary, partial weightbearing to heel. full weightbearing may result in increased swelling and cause dehiscence. patient questions answered. no guarantees expressed. consent has been signed by patient. patient was transferred from pre-op to operating room and placed on operating room in supine position. sign in was performed making note of procedure. she was placed under mac anesthesia and the right foot was prepped and draped. time out was performed making note of procedure and personal involved. the right foot was injected with local anesthesia. a tourniquet had been applied to right foot prior to prepping but was not used during this case. attention was then directed to right foot at 2nd interspace. there was healed incision proximally and eschar distally with jarred-wound erythema. using the same incision, I incised thru dermis, epidermis and subcutaneous tissue. there was scant serous/mucous drainage along the superficial skin but no deep fluid abscess noted in deep tissue. a sterile wound culture was obtained. 3000 cc of normal saline was then used for pulse lavage. inspection of deep space was performed. deep tissue looked healthy with no evidence of necrosis, fibrosis or infection. past absorbable suture was completely debrided and removed. cautery was performed as needed. the skin was closed using deep horizontal mattress with 2-0 and 3-0 nylon. no absorbable suture was used in this case prior to dressing of the foot, counts were correct. the redness that had been present had resolved. post-op dressing was applied consisting of adaptic, 4x4 guaze, kristian and thee. patient was awakened and found to be in stable condition. she was transferred to pacu in stable condition will admit to floor. continue antibiotics. likey discharge possibly tomorrow. I would recommend discharge on oral antibiotics for prolonged duration until healed.
[2017-05-27 02:32] VITALS: BP 126/71; PULSE 92; RESP 18; TEMP 36.7; O2SAT 98
[2017-05-27] MEDS: DiphenhydrAMINE 50 MG/ML Syringe 25 MG IV (02:36)
[2017-05-27] MEDS: Propranolol 10 MG Tablet PO ×2 (05:45→13:20)
--- NOTE | 2017-05-27 07:25 | PCM.PN.SRG ---
Patient Problems: Active and Suspected Problems Cellulitis of right foot (Acute) Subjective: patient seen this morning with no new complaints. last night had reaction to vancomycin and had this discontinued. she remains on cipro. she states her pain is well controlled with tylenol. she states the pain is 2/10. Objective: patient alert and orientated x 3. no acute distress right foot with surgical dressing clean and dry and intact. no strike thru bleeding. dressing removed today. surgical incision is approximated with no tension. mild erythema present but resolves with elevation. no drainage, no bleeding, no fluctuance, no evidence of infection. no deep calf pain present. foot appears stable, good color and good temperature. - Physical Exam Vital Signs Temp Pulse Resp BP Pulse Ox 98.1 F 92 18 126/71 H 98 05/27/17 02:32 05/27/17 02:32 05/27/17 02:32 05/27/17 02:32 05/27/17 02:32 Oxygen Delivery Method Room Air Weight: 138.3 kg Body Mass Index (BMI) 52.3 Intake and Output for Last 24 Hours 05/25/17 05/26/17 05/27/17 23:59 23:59 23:59 Intake Total 1550 / 1550 1871 / 1871 600 / 600 Balance 1550 / 1550 1871 / 1871 600 / 600 Laboratory Tests Past 24 Hrs 05/26/17 05/26/17 05/26/17 07:05 15:12 15:12 Urine Test Negative Hep Bs Antigen Pending Hep Bs Antibody Pending Hep B Core Total Ab Pending Hepatitis C Ab (EIA) Pending Hepatitis C Comment Pending HIV 1&2 Antibody Non-Reactive Assessment/Plan Active and Suspected Problems Cellulitis of right foot (Acute) patient was examined and informed of current findings. she is status post I&D of right foot with superficial suture abscess, no deep abscess. today, her dressing was removed. there is resolved erythema. there is no drainage. She is tolerating pain nicely. I would defer to ID for antibiotics. i would prefer her being discharged on antibiotics for period of time as we try to get this wound to heal. I would recommend nwb if possible but if she needs to apply weight to heel for transfer, that is ok, but nwb is ideal. I will have her perform dressing changes every other day. she was instructed on how to do this. she will apply betadine to incision follwed by adaptic, 4x4, kristian and thee. she is to continue with elevation to decrease swelling. I am ok for discharge once antibiotic determined for outpatient. her culture from [facility] was gram positive cocci with skin may. she can f/u as already scheduled.
[2017-05-27 07:49] VITALS: BP 106/65; PULSE 92; RESP 18; TEMP 37.2; O2SAT 94
[2017-05-27 08:35] LABS: Absolute Lymphocyte Count 1.85 X10^3/ul (0.83-4.51); Absolute Neutrophil Count 4.9 X10^3/uL (2.0-7.7); Basophil# 0.04 X10^3/uL; Basophil% 0.5 % (0-1); Eosinophil# 0.19 X10^3/uL; Eosinophils% 2.6 % (0-5); Hematocrit 35.1 % (37-47); Hemoglobin 11.2 g/dl (12.0-15.0); Lymphocyte # 1.85 X10^3/ul (4.0); Lymphocyte % 24.8 % (19-41); Mean Corp Hgb Conc 31.9 g/gl (32-36); Mean Corpuscular Hgb 26.2 pg (27.0-32.0); Mean Platelet Vol. 9.8 fl (6.2-12.0); Monocyte# 0.44 X10^3/uL; Monocyte% 5.9 % (0-10); Neutrophil # 4.92 X10^3/uL (2.7-7.7); Neutrophil % 66.1 % (47-70); Platelet Count 321 K/mm3 (150-450); RBC Distribution Width CV 15.6 % (11.6-14.6); RBC Distribution Width SD 46.2 fl (35.1-43.9); Red Blood Count 4.28 M/mm3 (4.2-5.4); White Blood Count 7.5 K/mm3 (4.4-11.0)
[2017-05-27 08:37] LABS: POSITIVE COUNT NO; POSITIVE DIFFERENTIAL NO; POSITIVE MORPHOLOGY NO
[2017-05-27] MEDS: Ciprofloxacin 500 MG Tablet PO (11:04)
[2017-05-27] MEDS: DULoxetine Hcl 60 MG Capsule PO (11:04)
[2017-05-27 12:08] VITALS: BP 120/76; PULSE 73; RESP 18; TEMP 36.6; O2SAT 96
--- NOTE | 2017-05-27 12:08 | DCINST_ITS ---
- Discharge Diagnoses Current Active Problems: Current Active and Chronic Problems Vitamin D deficiency (Chronic) Anxiety (Chronic) Depression (Chronic) Tachycardia (Chronic) Migraine (Chronic) Seasonal allergies (Chronic) Cellulitis of right foot (Acute) You will use the following diet at home:: Regular Your food should be the consistency of: Regular Discharge Activity: Return to Normal Activity Weight Bearing Status: No weight bearing - to rt. foot. Call your doctor if your incision/area has: Continuous Slow Oozing, Increased Pain/ Swelling, Increased Redness, Foul Smelling Discharge, Swelling at the incision site Call your doctor if you observe: Fever of 101 or Higher, Shortness of breath, Dizziness, Fainting spells, Chest pain, Increased palpitations (irregular heartbeat), Uncontrolled pain Allergies/Adverse Reactions: Allergies amoxicillin Allergy (Verified 01/17/17 20:43) Anaphylaxis Penicillins Allergy (Verified 01/17/17 20:43) Anaphylaxis spider venom Allergy (Verified 01/17/17 20:43) Swelling venom-honey bee Allergy (Verified 01/17/17 20:43) Anaphylaxis vancomycin Adverse Reaction (Verified 05/26/17 10:43) Itching and redness Red Man Medications to take at Discharge Cholecalciferol (Vitamin D3) [Vitamin D3] 1,000 unit PO DAILY 01/17/17 Cyanocobalamin (Vitamin B-12) [Vitamin B12] 1,000 mcg PO DAILY 01/17/17 Duloxetine Hcl [Cymbalta] 60 mg PO DAILY 01/17/17 Propranolol HCl 10 mg PO DAILY 01/17/17 Riboflavin [Vitamin B2] 50 mg PO DAILY 01/17/17 Bupropion HCl [Wellbutrin Xl] 150 mg PO DAILY 05/25/17 Calcium Carbonate [Tums] 500 mg PO Q6H PRN PRN 05/25/17 Fexofenadine HCl [Holly Allergy] 60 mg PO BID PRN PRN 05/25/17 Fluticasone 0.05% [Flonase Nasal [place]] 1 spray NASAL BID PRN PRN 05/25/17 Doxycycline 100 mg PO BID 7 Days #14 cap 05/27/17 Levofloxacin [Levaquin] 500 mg PO DAILY@0600 7 Days #7 tab 05/27/17 The following prescriptions were given: Levofloxacin [Levaquin] 500 mg PO DAILY@0600 7 Days #7 tab Doxycycline 100 mg PO BID 7 Days #14 cap Primary Care Physician: James Mehta PA [Primary Care Provider] - Please follow up with your Primary Care Physician in: 2-3 weeks. Please Follow Up With: Sam Michelle DPM When: as scheduled
--- NOTE | 2017-05-27 12:35 | PCM.PN.ID ---
Patient Problems: Active and Suspected Problems Cellulitis of right foot (Acute) Subjective: Feeling well, pain controlled, no fever, no n/v/d. - Physical Exam General: Alert, Cooperative, No apparent distress Lungs: Clear to auscultation, Normal air movement Cardiovascular: Regular rate, Regular Rhythm Abdomen: Soft, Non Tender, Non-Distended Skin: No rashes - L foot wrapped Vital Signs Temp Pulse Resp BP Pulse Ox 99 F 92 18 106/65 94 05/27/17 07:49 05/27/17 07:49 05/27/17 07:49 05/27/17 07:49 05/27/17 07:49 Oxygen Delivery Method Room Air Weight: 138.3 kg Body Mass Index (BMI) 52.3 Intake and Output for Last 24 Hours 05/25/17 05/26/17 05/27/17 23:59 23:59 23:59 Intake Total 1550 / 1550 1871 / 1871 600 / 600 Balance 1550 / 1550 1871 / 1871 600 / 600 Microbiology Past 72 Hours 05/26/17 Unknown Gram Stain - Final Wound Drainage - Aerobic & Anaerobic Swabs Wound Culture - Preliminary No growth-Final to follow Laboratory Tests Past 24 Hrs 05/26/17 05/26/17 05/27/17 15:12 15:12 08:10 WBC 7.5 RBC 4.28 Hgb 11.2 L Hct 35.1 L MCV 82.0 MCH 26.2 L MCHC 31.9 L RDW 15.6 H RDW Differential 46.2 H Plt Count 321 MPV 9.8 Immature Gran % (Auto) 0.100 Neut % (Auto) 66.1 Lymph % (Auto) 24.8 [place] % (Auto) 5.9 Eos % (Auto) 2.6 Baso % (Auto) 0.5 Absolute Neuts (auto) 4.9 Absolute Lymphs (auto) 1.85 Total Counted Not Reportable Hep Bs Antigen Pending Hep Bs Antibody Pending Hep B Core Total Ab Pending Hepatitis C Ab (EIA) Pending Hepatitis C Comment Pending HIV 1&2 Antibody Non-Reactive Route of nutrition/ use of supplements: [] Nutritional Intake: [] IV Site: [] Santos Catheter: [] - Assessment/Plan Antibiotics: [] Assessment/Plan: [] Active and Suspected Problems Cellulitis of right foot (Acute) - no deeper infection seen in OR 05/[address] Michelle. Internal sutures removed, surg cx pending. Ok for d/c home on one week po doxy and levaquin, will follow cx results. D/w primary team and Dr. Michelle, will follow.
[2017-05-27] MEDS: Doxycycline 100 MG CAPSULE PO (13:20)
--- NOTE | 2017-05-27 14:45 | DS.PCM_ITS ---
Discharge Date and Diagnosis Date of Admission: 05/25/17 Date of Discharge: 05/27/17 - Primary Discharge Diagnosis Acute right foot cellulitis/possibly infected surgical incision for right foot Mann's neuroma. - Secondary Discharge Diagnosis Chronic Problems Vitamin D deficiency (Chronic) Anxiety (Chronic) Depression (Chronic) Tachycardia (Chronic) Migraine (Chronic) Seasonal allergies (Chronic) Hospital Course and Treatment Dr. michelle, podiatry medicine. Dr. jin, infectious disease. Procedures: - - Incision and drainage of the right foot. Summary of Care Provided: Patient seen and examined on the day of discharge and appeared to be stable to be discharged home. Yesterday, she was started back on IV vancomycin infusion and again started having skin rash and itching. This morning, complains of mild itching but has been improving as well as the rash. Her vital signs are stable. She has been off vancomycin overnight. - Physical Exam General: Alert, Oriented x3, Cooperative, No apparent distress. HEENT: Atraumatic, PERRLA, EOMI. Neck: Supple, No JVD, Negative Carotid Bruits, Trachea Midline, Thyroid Normal. Lungs: Clear to auscultation, Normal air movement, No rhonchi, No wheeze, No rales. Cardiovascular: Regular rate, Regular Rhythm, Normal S1, Normal S2, PMI Normal. Abdomen: Bowel Sounds Present, Soft, Non Tender, Non-Distended, No Hepato- splenomegaly. Extremities: No clubbing, No cyanosis, No edema Skin: No rashes, No breakdown Neurological: Neuro grossly intact Vital Signs are stable. Hospital course: The patient is a 22 year old F directly admitted to the hospital from office for acute right foot cellulitis with possibly infected surgical incision of the right foot for Mann's neuroma with failure of outpatient therapy. There was no evidence of sepsis or severe sepsis on admission. Patient was treated with IV vancomycin but she developed skin rash which is probably due to red man syndrome. Even with slow infusion, patient developed skin rash to vancomycin. She was treated with ciprofloxacin. She underwent incision and drainage for right foot cellulitis as well as possibly infected surgical incision. Her routine blood work was unremarkable. Her vital signs were stable. Wound culture revealed no growth and final culture was pending at the time of discharge. Patient was seen by infectious disease and recommended oral Levaquin and doxycycline for 7 days upon discharge. Patient discharged home in a stable medical condition, discharged on Levaquin and doxycycline, plan to follow-up with podiatry medicine who recommended nonweightbearing to the right lower extremity, recommended follow-up with PCP in 2-3 weeks. Discharge Activity: Return to Normal Activity Weight Bearing Status: No weight bearing - to rt. foot. Call your doctor if your incision/area has: Continuous Slow Oozing, Increased Pain/ Swelling, Increased Redness, Foul Smelling Discharge, Swelling at the incision site Call your doctor if you observe: Fever of 101 or Higher, Shortness of breath, Dizziness, Fainting spells, Chest pain, Increased palpitations (irregular heartbeat), Uncontrolled pain Home Medications: Medications to take at Discharge Cholecalciferol (Vitamin D3) [Vitamin D3] 1,000 unit PO DAILY 01/17/17 Cyanocobalamin (Vitamin B-12) [Vitamin B12] 1,000 mcg PO DAILY 01/17/17 Duloxetine Hcl [Cymbalta] 60 mg PO DAILY 01/17/17 Propranolol HCl 10 mg PO DAILY 01/17/17 Riboflavin [Vitamin B2] 50 mg PO DAILY 01/17/17 Bupropion HCl [Wellbutrin Xl] 150 mg PO DAILY 05/25/17 Calcium Carbonate [Tums] 500 mg PO Q6H PRN PRN 05/25/17 Fexofenadine HCl [Holly Allergy] 60 mg PO BID PRN PRN 05/25/17 Fluticasone 0.05% [Flonase Nasal [place]] 1 spray NASAL BID PRN PRN 05/25/17 Doxycycline 100 mg PO BID 7 Days #14 cap 05/27/17 Levofloxacin [Levaquin] 500 mg PO DAILY@0600 7 Days #7 tab 05/27/17 Following Prescrptions Were Given to Patient: Levofloxacin [Levaquin] 500 mg PO DAILY@0600 7 Days #7 tab Doxycycline 100 mg PO BID 7 Days #14 cap Primary Care Physician: James Mehta PA [Primary Care Provider] - Please follow up with your Primary Care Physician in: 2-3 weeks. Please Follow Up With: Sam Michelle DPM When: as scheduled Disposition: Home Minutes spent on discharge:: 26 Patient Condition:: Stable Meaningful Use Info Meaningful Use Diagnoses (Choose all that apply): None applicable Code Visit Inpatient E&M: 86342 Disch Hosp
== END 2017-05-27 13:36 | disposition home or self-care (01) | DRG 415 ==
PROVIDERS: Anesthesiology; Podiatrist Foot & Ankle Surgery; Admitting Provider Internal Medicine; Family Provider Physician Assistant; PCP Physician Assistant; Visit Provider Hospitalist
PROC: 0J9Q0ZZ Drainage of Right Foot Subcutaneous Tissue and Fascia, Open Approach (ICD-10-PCS; principal; 2017-05-26 12:50)
DX: T81.4XXA Infection following a procedure, initial encounter (principal); E66.01 Morbid (severe) obesity due to excess calories; L02.611 Cutaneous abscess of right foot; L03.115 Cellulitis of right lower limb; E55.9 Vitamin D deficiency, unspecified; G43.909 Migraine, unspecified, not intractable, without status migrainosus; Z68.43 Body mass index [BMI] 50.0-59.9, adult; F32.9 Major depressive disorder, single episode, unspecified; F41.9 Anxiety disorder, unspecified; J30.2 Other seasonal allergic rhinitis; L27.0 Generalized skin eruption due to drugs and medicaments taken internally; T36.8X5A Adverse effect of other systemic antibiotics, initial encounter; R00.0 Tachycardia, unspecified
CPT/HCPCS: 36415; 73718; 80048; 80053; 81025; 85025; 85027; 86703; 86704; 86706; 86803; 87070; 87075; 87205; 87340; 87640; 93005; J7040; A4216

== ENCOUNTER → 2017-09-14 12:57 | Outpatient (CLI) | payer MEDICAID, SELFPAY | PROVIDERS: Family Provider Physician Assistant; PCP Physician Assistant; Visit Provider Physician Assistant | DX: R00.0 Tachycardia, unspecified (principal) | CPT/HCPCS: 93225; 93226 ==

== ENCOUNTER 2020-04-04 20:30 | Emergency (ER) | payer MEDICAID, SELFPAY ==
[2019-02-07 12:18] VITALS: BMI 55.7
[2020-04-04 20:31] VITALS: BP 147/90; PULSE 116; RESP 18; TEMP 36.3; O2SAT 98; BMI 59.9
--- NOTE | 2020-04-04 21:07 | RAD_ITS ---
STUDY: X-RAY - LEFT HAND, ATTENTION FIRST FINGER REASON FOR EXAM: Female, 25 years old. Fall tonight. Left thumb injury. Acrylic nail snapped in half. TECHNIQUE: 3 view(s) of the finger were obtained. COMPARISON: None. FINDINGS: Normal metacarpal head. Normal metacarpophalangeal joint. Normal proximal phalanx. Normal distal phalanx. Normal interphalangeal joint. There is no demonstrated fracture. RAD/Finger(s) Min 2 Views IMPRESSION: Normal x-ray examination of the thumb. Electronically Signed: Jai Higgins MD at 21:24 EST , Service support ,
[2020-04-04] MEDS: Naproxen 500 MG Tablet PO (21:19)
[2020-04-04] MEDS: Diphth,Pertuss(Acell),Tet Vac 0.5 ML Vial IM (21:19)
[2020-04-04] MEDS: HYDROcodone Bitartrate/Apap 5/325 Tablet PO (21:19)
--- NOTE | 2020-04-04 22:13 | ED.VISSUMM ---
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 She is right-hand dominant. Her tetanus is not up-to-date. She caught her left thumbnail on a stair rail and it is only attached at the base now. She complains of a throbbing pain is 10-10 at worst and 710 currently. Is worsened by movement relieved by rest. She denies any other trauma or complaints. Physical Examination: Vitals: Stable. Afebrile. General: Well-nourished and well-developed. Head: Normocephalic atraumatic. Neck: Supple, no lymphadenopathy. No JVD. Nontender. Cardiovascular: Regular rate and rhythm. No murmurs. Respiratory: No respiratory distress. Clear to auscultation bilaterally. Abdominal: Soft, nontender, nondistended, normal bowel sounds. No guarding, rebound, or peritoneal signs. Back: Nontender. Extremities: Left thumb nail is only attached in the eponychial fold. There is no laceration to the nailbed. Skin: Normal color, no rash. Neurologic: Alert and oriented ?3. Cranial nerves II through XII are intact. Normal strength and sensation. Psych: Normal affect. Test Results: Clinical Impression(s) from Imaging Studies Finger X-Ray 04/04/20 21:07 IMPRESSION: Normal x-ray examination of the thumb. Electronically Signed: Jai Higgins MD at 21:24 EST , Service support , Emergency Department Course and Treatment: Had a prolonged scratch the patient about treatment options. She has chosen to have the nail removed. The nail itself was trimmed down and placed back in the eponychial fold. Treatment Plan: Patient will be discharged instructions to follow-up with Dr. Bashir in 10 to 14 days for suture removal. Return to the emergency department for any worsening symptoms. Disposition: To home in improved and stable condition. Impression: 1. Left thumbnail avulsion. Procedure note: Wound was cleansed with chlorhexidine soap. Anesthetized with bupivacaine through a digital block. The nail was removed. There is no laceration to the nailbed. The nail was trimmed down and the remaining nail was placed back in an eponychial fold and sewn into place with two 4-0 Ethilon sutures. A tube gauze dressing was placed. This note was generated with [employer] dictation software. It may contain incorrect words, spelling, and punctuation that were not noted in review of the chart prior to signing ED Disposition - Plan for ED Patient: Instructions: ED Detached Fingernail or Toenail Prescriptions: Hydrocodone Bitart/Apap 5-325 [[place] 5MG-325MG] 1 tab PO Q4H PRN PRN 2 Days #10 tab PRN Reason: Pain Prescription Printed Referrals: Lico Bashir MD [STAFF PHYSICIAN] - 10-14 Days suture removal
[2020-04-04] MEDS: Bupivacaine Mpf 0.5% 30 ML VIAL INFILT (22:23)
== END 2020-04-04 23:09 | disposition home or self-care (01) ==
PROVIDERS: Emergency Provider Emergency Medicine; PCP Family Medicine
DX: S61.102A Unspecified open wound of left thumb with damage to nail, initial encounter (principal); X58.XXXA Exposure to other specified factors, initial encounter; Y93.9 Activity, unspecified; Y92.9 Unspecified place or not applicable; Y99.9 Unspecified external cause status; Z23 Encounter for immunization; F31.9 Bipolar disorder, unspecified; F41.9 Anxiety disorder, unspecified; Z79.899 Other long term (current) drug therapy
CPT/HCPCS: 11760; 73140; 90471; 90715; 99283

== ENCOUNTER 2022-02-09 21:07 | Emergency (ER) | payer MEDICAID, SELFPAY ==
[2022-02-09 21:09] VITALS: BP 127/76; PULSE 122; RESP 15; TEMP 36.6; O2SAT 98; BMI 65.0
--- NOTE | 2022-02-09 23:35 | EX.ED.GENINJ ---
HPI History of Present Illness Chief Complaint: Other, Pain/Inj Narrative Narrative: Patient presenting with pain at the lower tailbone upper rectal area. Patient states that she was told today that she has a fungal infection. When she went to put that nystatin cream on it was noted she was bleeding. She states she is not had a problem with bleeding before. No history of abscess. No history of cellulitis. No systemic signs or symptoms. [facility] Medical History Anxiety Back problem Bone fracture Carpal tunnel syndrome Cellulitis of right foot Depression Heart disease Hives IBS (irritable bowel syndrome) Migraine Nail avulsion, finger Obesity Seasonal allergies Vitamin D deficiency Home Medications duloxetine 60 mg capsule,delayed release 60 mg PO DAILY mood 01/17/17 [History Last Taken 05/24/17] bupropion HCl 150 mg 24 hr tablet, extended release 150 mg PO DAILY 05/25/17 [History Last Taken 05/24/17] fexofenadine 60 mg tablet 60 mg PO BID PRN PRN Allergies 05/25/17 [History Last Taken Unknown] fluticasone propionate 50 mcg/actuation nasal spray,suspension 1 spray NASAL BID PRN PRN Allergies 05/25/17 [History Last Taken Unknown] quetiapine 25 mg tablet (Seroquel) 25 mg PO QHS 02/06/19 [History Last Taken Unknown] verapamil 180 mg tablet,extended release 180 mg PO Q12H 02/06/19 [History Last Taken Unknown] epinephrine 0.3 mg/0.3 mL injection, auto-injector 0.3 ml IM ONCE PRN Anaphylaxis 02/07/19 [History Last Taken Unknown] medroxyprogesterone 150 mg/mL intramuscular suspension (Depo-Provera) 150 mg IM [id number] 02/07/19 [History Last Taken Unknown] cariprazine 1.5 mg capsule 1.5 mg PO QHS 04/04/20 [History Last Taken Unknown] dicyclomine 20 mg tablet 20 mg PO 02/09/22 [History Last Taken Unknown] diltiazem HCl 240 mg capsule,extended release 24 hr mg PO 02/09/22 [History Last Taken Unknown] metoprolol tartrate 50 mg tablet mg 02/09/22 [History Last Taken Unknown] sulfamethoxazole 800 mg-trimethoprim 160 mg tablet (Bactrim DS) 1 tab PO BID #20 tabs 02/09/22 [Rx Last Taken Unknown] Allergy/AdvReac Type Severity Reaction Status Date / Time amoxicillin Allergy Anaphylaxis Verified 02/09/22 21:14 Penicillins Allergy Anaphylaxis Verified 02/09/22 21:14 spider venom Allergy Swelling Verified 02/09/22 21:14 venom-honey bee Allergy Anaphylaxis Verified 02/09/22 21:14 vancomycin AdvReac Itching Verified 02/09/22 21:14 and redness Family History Father CAD (coronary artery disease) stents Other Alcoholism /alcohol abuse Anemia Angina at rest Anxiety Anxiety and depression Arthritis Asthma Breast cancer CVA (cerebral vascular accident) Cancer Diabetes Heart disease High cholesterol Hypertension Psychiatric care Seizures Severe allergy Suicide attempt Thyroid disorder Surgical History History of foot surgery History of tonsillectomy History of wisdom tooth extraction Social History Smoking Status: Never smoker alcohol intake: current substance use type: does not use additional social history: does take aspirin as needed does take ibuprofen as needed ROS ROS ED Constitutional Constitutional ED: Denies chills or fever(s) Eyes Eyes: Denies change in vision ENT ENT ED: Denies rhinorrhea or sore throat Cardiovascular Cardiovascular: Denies chest pain or palpitations Respiratory/Chest Respiratory/Chest: Denies cough, dyspnea or dyspnea on exertion Gastrointestinal Gastrointestinal: Denies abdominal pain, constipation, nausea or vomiting Genitourinary Genitourinary ED: Denies dysuria or hematuria Musculoskeletal Musculoskeletal: Denies arthralgias or back pain Integumentary Reports abscess Neurologic Neurologic: Denies headache(s) Psychiatric Psychiatric: Denies anxiety or depression EXAM Physical Exam Const Vital Signs: 02/09/22 21:09 Temperature 97.8 F Temperature Source Temporal Pulse Rate 122 H Respiratory Rate 15 Blood Pressure 127/76 H Blood Pressure Mean 93 Pulse Ox 98 Oxygen Delivery Method Room Air Positive well nourished General Appearance ED: NAD HEENT atraumatic Eyes PERRL and EOMs intact bilaterally Resp normal respiratory effort Cardio regular rhythm Rate: bradycardia GI normal to inspection, nondistended, normoactive bowel sounds Back/Spine normal to inspection Neuro oriented x3 and CN's II-XII intact bilaterally Psych mental status grossly normal Skin Skin Narrative: 2 cm abscess at the top of the gluteal folds. Minimal fluctuance. There is slight purulent drainage expressed. There is no fluctuance of the lumbar spine or any area beneath this area in the rectal region. There is a small amount of erythema surrounding this area. MDM MDM MDM Narrative Medical decision making narrative: Patient presents with bleeding from what she thought was a fungal infection. She has a small abscess here. It is well localized between the upper gluteal folds. I recommended opening this up a little further so it would drain better. She was amenable to this. Patient was counseled on the procedure and risk benefits. Patient was anesthetized with 4 cc of lidocaine with epinephrine. Good anesthesia achieved. A midline incision was made vertically through the abscess. This did appear to be superficial and was well localized. There is no extension. I did attempt to deloculated the wound and I did not find any pockets of purulence. Patient was irrigated with 500 cc of sterile saline. Patient tolerated procedure well. Patient was started on Bactrim. I gave her follow-up with general surgery if her wound is not improving. She is counseled on sitz bath's. All questions were answered. She is discharged stable condition. Impression: 1. Gluteal abscess Lab Data Attestation: I reviewed the patient's lab results. Discharge Plan Triage Chief Complaint: Other, Pain/Inj ED Provider: Angel Arreola Dx/Rx/DC Orders Instructions: ED Abscess Incision And Drainage Prescriptions: New sulfamethoxazole-trimethoprim [Bactrim DS] 800-160 mg tablet 1 tab PO BID Qty: 20 0RF No Action medroxyprogesterone [Depo-Provera] 150 mg/mL suspension 150 mg IM [id number] epinephrine 0.3 mg/0.3 mL auto-injector 0.3 ml IM ONCE PRN (Reason: Anaphylaxis) quetiapine [Seroquel] 25 mg tablet 25 mg PO QHS verapamil 180 mg tablet extended release 180 mg PO Q12H duloxetine 60 MG capsule 60 mg PO DAILY fexofenadine 60 MG tablet 60 mg PO BID PRN PRN (Reason: Allergies) fluticasone propionate 1 SPRAY spray,suspension 1 spray NASAL BID PRN PRN (Reason: Allergies) bupropion HCl 150 MG tablet extended release 24 hr 150 mg PO DAILY cariprazine 1.5 MG capsule 1.5 mg PO QHS diltiazem HCl 240 mg capsule,extended release 24hr PO dicyclomine 20 mg tablet 20 mg PO Label Comments: TAKE 1 TABLET BY MOUTH THREE TIMES DAILY metoprolol tartrate 50 mg tablet Label Comments: TAKE 1 TABLET BY MOUTH TWICE DAILY Primary Care Provider: Rebel Justice Referrals: Maribell Andino MD [Med Staff - Active Staff] - 2 Days for wound check Rebel Justice MD [Primary Care Provider] - Disposition Disposition: Home, Self Care
[2022-02-09] MEDS: HYDROcodone Bitartrate/Apap 5/325 Tablet PO (23:43)
[2022-02-09] MEDS: Lidocaine 2% /Epi 1:100 (50ml) 50 ML Vial 25 ML INFILT (23:44)
[2022-02-09] MEDS: Smz/Tmp Ds Tablet 1 TABLET PO (23:44)
== END 2022-02-09 23:58 | disposition home or self-care (01) ==
PROVIDERS: Emergency Provider Student in an Organized Health Care Education/Training Program; PCP Family Medicine; Visit Provider Student in an Organized Health Care Education/Training Program
DX: L02.31 Cutaneous abscess of buttock (principal); Z79.899 Other long term (current) drug therapy
CPT/HCPCS: 10060; 99283

== ENCOUNTER → 2022-04-02 | Outpatient (CLI) | payer MEDICAID, SELFPAY | END | disposition home or self-care (01) | PROVIDERS: PCP Family Medicine; Referring Provider Family Medicine; Visit Provider Family Medicine | DX: G47.33 Obstructive sleep apnea (adult) (pediatric) (principal) | CPT/HCPCS: 95811 ==

== ENCOUNTER → 2022-05-03 | Outpatient (CLI) | payer MEDICAID, SELFPAY | END | disposition home or self-care (01) | LOC: SL 20:18 | PROVIDERS: PCP Family Medicine; Referring Provider Family Medicine; Visit Provider Family Medicine | DX: G47.33 Obstructive sleep apnea (adult) (pediatric) (principal) | CPT/HCPCS: 95811 ==

== ENCOUNTER → 2022-05-20 | Outpatient (CLI) | payer MEDICAID, SELFPAY | END | disposition home or self-care (01) | LOC: SL 14:06 | PROVIDERS: PCP Family Medicine; Visit Provider Family Medicine | DX: Z00.00 Encounter for general adult medical examination without abnormal findings (principal) ==

== ENCOUNTER 2023-02-04 13:22 | Emergency (ER) | payer MEDICAID, SELFPAY ==
[2023-02-04 13:22] VITALS: BP 135/87; PULSE 89; RESP 20; TEMP 36.6; O2SAT 99; BMI 67.6
--- NOTE | 2023-02-04 13:58 | ED.VIS.LOWEX ---
HPI History of Present Illness Chief Complaint: Lower Extremity Injury Narrative Narrative: 28-year-old female presents with left heel pain that she has had for the last week. She describes it as a burning and sharp pain that is worse with weightbearing. Although she has had plantar fasciitis earlier this year in her right foot, she states that this feels different. She states she was unable to see her primary care physician, or schedule a closer appointment with her dye reel operator helper. She is taking Tylenol and ibuprofen without relief. She presents because of the worsening pain in her heel with weightbearing. She denies any trauma or recent injury. [facility] Medical History Anxiety Back problem Bone fracture Carpal tunnel syndrome Cellulitis of right foot Depression Heart disease Hives IBS (irritable bowel syndrome) Migraine Nail avulsion, finger Obesity Seasonal allergies Vitamin D deficiency Home Medications duloxetine 60 mg capsule,delayed release 60 mg PO DAILY mood 01/17/17 [History Last Taken 05/24/17] bupropion HCl 150 mg 24 hr tablet, extended release 150 mg PO DAILY 05/25/17 [History Last Taken 05/24/17] fexofenadine 60 mg tablet 60 mg PO BID PRN PRN Allergies 05/25/17 [History Last Taken Unknown] fluticasone propionate 50 mcg/actuation nasal spray,suspension 1 spray NASAL BID PRN PRN Allergies 05/25/17 [History Last Taken Unknown] quetiapine 25 mg tablet (Seroquel) 25 mg PO QHS 02/06/19 [History Last Taken Unknown] verapamil 180 mg tablet,extended release 180 mg PO Q12H 02/06/19 [History Last Taken Unknown] epinephrine 0.3 mg/0.3 mL injection, auto-injector 0.3 ml IM ONCE PRN Anaphylaxis 02/07/19 [History Last Taken Unknown] medroxyprogesterone 150 mg/mL intramuscular suspension (Depo-Provera) 150 mg IM [id number] 02/07/19 [History Last Taken Unknown] cariprazine 1.5 mg capsule 1.5 mg PO QHS 04/04/20 [History Last Taken Unknown] dicyclomine 20 mg tablet 20 mg PO 02/09/22 [History Last Taken Unknown] diltiazem HCl 240 mg capsule,extended release 24 hr mg PO 02/09/22 [History Last Taken Unknown] metoprolol tartrate 50 mg tablet mg 02/09/22 [History Last Taken Unknown] sulfamethoxazole 800 mg-trimethoprim 160 mg tablet (Bactrim DS) 1 tab PO BID #20 tabs 02/09/22 [Rx Last Taken Unknown] gabapentin 100 mg capsule 100 mg PO BID #14 caps 02/04/23 [Rx Last Taken Unknown] Allergy/AdvReac Type Severity Reaction Status Date / Time amoxicillin Allergy Anaphylaxis Verified 02/04/23 13:24 Penicillins Allergy Anaphylaxis Verified 02/04/23 13:24 spider venom Allergy Swelling Verified 02/04/23 13:24 sunflower seed Allergy Pain in Verified 02/04/23 13:24 joints venom-honey bee Allergy Anaphylaxis Verified 02/04/23 13:24 vancomycin AdvReac Itching Verified 02/04/23 13:24 and redness Family History Father CAD (coronary artery disease) stents Other Alcoholism /alcohol abuse Anemia Angina at rest Anxiety Anxiety and depression Arthritis Asthma Breast cancer CVA (cerebral vascular accident) Cancer Diabetes Heart disease High cholesterol Hypertension Psychiatric care Seizures Severe allergy Suicide attempt Thyroid disorder Surgical History History of carpal tunnel release of both wrists History of foot surgery History of tonsillectomy History of wisdom tooth extraction Social History Smoking Status: Never smoker alcohol intake: current substance use type: does not use additional social history: does take aspirin as needed does take ibuprofen as needed ROS ROS ED ROS Narrative Constitutional: No fever, no chills. HEENT: No sore throat. No neck pain. No loss of vision. No rhinorrhea. Cardiovascular: No chest pain. No palpitations. No pedal edema. Respiratory: No cough, no shortness of breath. Abdominal: No abdominal pain. No nausea. No vomiting. Genitourinary: No dysuria. No hematuria. Musculoskeletal: No myalgias. Left heel pain, worse with walking and weightbearing. Neurologic: No headaches. No dizziness. No lightheadedness. Skin: No rash. No change in color. Psychiatric: No depression. No anxiety. EXAM Physical Exam Narrative Exam Narrative: Afebrile. Vital signs noted. HEENT: Normocephalic. Atraumatic. PERRL, EOMI. Neck soft and supple. No point tenderness or step off. Cardiovascular: Regular rate and rhythm. No murmurs, rubs, or gallops appreciated. Respiratory: No tachypnea. Lungs clear to auscultation bilaterally. Gastrointestinal: Abdomen soft, nontender, with normoactive bowel sounds. No rebound or guarding. Neurological: Awake. Alert. Nonfocal, nonlateralizing. Skin: No rash. Normal color. No pallor. Musculoskeletal: No pedal edema. Full range of motion extremities. Positive tenderness to palpation plantar fascia of heel. No palpable Achilles tendon deficit. Palpable dorsalis pedis pulse. No proximal fibular head tenderness, no calf tenderness. Const Vital Signs: 02/04/23 13:22 Temperature 97.8 F Temperature Source Temporal Pulse Rate 89 Respiratory Rate 20 H Blood Pressure 135/87 H Blood Pressure Mean 103 Pulse Ox 99 Oxygen Delivery Method Room Air MDM MDM MDM Narrative Medical decision making narrative: At the top of the differential is plantar fasciitis. She states that this feels different as is burning sensation. She may have more of a peripheral neuropathy which is also in the differential. I have low concern for DVT or blood clot as history and physical does not support this. X-rays were obtained of the left foot in 3 views and interpreted by myself independently. I will check a random blood sugar to make sure that she does not have excessively elevated blood sugars. According to the RN, [id number] glucose is 112. She had eaten 2 to 3 hours prior to this. Additionally, foot x-ray 3 views was interpreted by myself independently as no evidence of fracture, no noted heel spur. I reviewed the radiology report which confirms my independent interpretation. At this point in time, while I do feel that she probably has plantar fasciitis, she was given a prescription for 14 gabapentin 100 mg capsules to help with her neuropathic pain as she states it is more of a burning sensation and different than her previous plantar fasciitis. She continues her [id number] medications and I do not feel narcotic pain medication is indicated. She was also referred to the dye reel operator helper on-call as she states she cannot see her dye reel operator helper for over a month. She will also follow-up with her primary care provider. I feel she can be discharged safely home with follow-up and that she does not require observation at this time. Disposition is discharged home in stable condition. History & Record Review Discussion w/independent historian: Patient Lab Data Attestation: I reviewed the patient's lab results. Labs: Laboratory Results - last 24 hr 02/04/23 14:17 POC Glucose 112 H Radiography Diagnostic Testing: Clinical Impression(s) from Imaging Studies Foot X-Ray 02/04/23 14:00 IMPRESSION: Normal x-ray examination of the foot. Electronically Signed: John Tony MD at 14:21 EDT , Discharge Plan Triage Chief Complaint: Lower Extremity Injury ED Provider: Obdulio Diez Dx/Rx/DC Orders Clinical Impression: Plantar fasciitis of left foot, Nerve pain Instructions: ED Plantar Fasciitis Prescriptions: New gabapentin 100 mg capsule 100 mg PO BID Qty: 14 0RF No Action medroxyprogesterone [Depo-Provera] 150 mg/mL suspension 150 mg IM [id number] epinephrine 0.3 mg/0.3 mL auto-injector 0.3 ml IM ONCE PRN (Reason: Anaphylaxis) quetiapine [Seroquel] 25 mg tablet 25 mg PO QHS verapamil 180 mg tablet extended release 180 mg PO Q12H duloxetine 60 MG capsule 60 mg PO DAILY fexofenadine 60 MG tablet 60 mg PO BID PRN PRN (Reason: Allergies) fluticasone propionate 1 SPRAY spray,suspension 1 spray NASAL BID PRN PRN (Reason: Allergies) bupropion HCl 150 MG tablet extended release 24 hr 150 mg PO DAILY cariprazine 1.5 MG capsule 1.5 mg PO QHS diltiazem HCl 240 mg capsule,extended release 24hr PO dicyclomine 20 mg tablet 20 mg PO Patient Comments: TAKE 1 TABLET BY MOUTH THREE TIMES DAILY metoprolol tartrate 50 mg tablet Patient Comments: TAKE 1 TABLET BY MOUTH TWICE DAILY sulfamethoxazole-trimethoprim [Bactrim DS] 800-160 mg tablet 1 tab PO BID Qty: 20 0RF Primary Care Provider: Rebel Justice Referrals: Adelfo Raza DPM [Med Staff - Active Staff] - As soon as possible Rebel Justice MD [Primary Care Provider] - 1 Week if not improving Disposition Disposition: Home, Self Care
--- NOTE | 2023-02-04 14:00 | RAD_ITS ---
STUDY: X-RAY - LEFT FOOT CLINICAL: Female, 28 years old. Heel pain. TECHNIQUE: 3 view(s) of the foot. COMPARISON: None. FINDINGS: Normal talus, calcaneus, and tarsal bones. Normal visualized subtalar, talonavicular, calcaneocuboid, tarsal and tarsometatarsal articulations. Normal metatarsi. Normal metatarsophalangeal joint of the great toe. Normal tibial and fibular sesamoid bones. Normal interphalangeal joint of the great toe. Normal phalanges of the great toe. Normal second through fifth metatarsophalangeal joints. Normal interphalangeal joints and phalanges of the lesser toes. The soft tissue structures are unremarkable. RAD/Foot min 3 Views IMPRESSION: Normal x-ray examination of the foot. Electronically Signed: John Tony MD at 14:21 EDT ,
[2023-02-04 14:36] LABS: Bedside Glucose 112 mg/dL (74-106)
== END 2023-02-04 15:58 | disposition home or self-care (01) ==
PROVIDERS: Emergency Provider Emergency Medicine; PCP Family Medicine; Visit Provider Emergency Medicine
DX: M72.2 Plantar fascial fibromatosis (principal); M79.2 Neuralgia and neuritis, unspecified; Z79.899 Other long term (current) drug therapy
CPT/HCPCS: 73630; 82962; 99283

== ENCOUNTER → 2023-07-05 | Outpatient (CLI) | payer MEDICAID, SELFPAY ==
[2023-07-05] MEDS: Methacholine Chloride 18 ml neb kit INHALATION (13:04)
== END | disposition home or self-care (01) ==
LOC: PSN 12:51
PROVIDERS: PCP Family Medicine
DX: R06.02 Shortness of breath (principal)
CPT/HCPCS: 94070; 95070

== ENCOUNTER 2024-05-16 17:58 | Emergency (ER) | payer MEDICAID, SELFPAY ==
[2024-05-16 17:59] VITALS: BP 148/90; PULSE 110; RESP 22; TEMP 35.6; O2SAT 97; BMI 61.4
--- NOTE | 2024-05-16 18:09 | EKG12_ITS ---
Test Reason : CP Blood Pressure : */* mmHG Vent. Rate : 107 BPM Atrial Rate : 107 BPM P-R Int : 170 ms QRS Dur : 68 ms QT Int : 342 ms P-R-T Axes : 37 36 30 degrees QTcB Int : 456 ms Sinus tachycardia Low voltage QRS Borderline ECG Confirmed by TERE MILLER, DEB ([id number]), editor & co founder DIRK AMBROSE ([id number]) on 05/18/2024 1:00:58 PM Referred By: Confirmed By: DEB CARRANZA MD
--- NOTE | 2024-05-16 18:30 | ED.VIS.CHEST ---
HPI History of Present Illness Chief Complaint: Chest Pain [facility] Medical History Anxiety Back problem Bone fracture Carpal tunnel syndrome Cellulitis of right foot Depression Heart disease Hives IBS (irritable bowel syndrome) Migraine Nail avulsion, finger Obesity Seasonal allergies Vitamin D deficiency Home Medications ?Medication ?Instructions ?Recorded ?Last Taken ?Type duloxetine 60 mg capsule,delayed 60 mg PO DAILY mood 01/17/17 05/24/17 History release bupropion HCl 150 mg 24 hr tablet, 150 mg PO DAILY 05/25/17 05/24/17 History extended release fexofenadine 60 mg tablet 60 mg PO BID PRN PRN Allergies 05/25/17 Unknown History fluticasone propionate 50 1 spray NASAL BID PRN PRN Allergies 05/25/17 Unknown History mcg/actuation nasal spray,suspension quetiapine 25 mg tablet (Seroquel) 25 mg PO QHS 02/06/19 Unknown History verapamil 180 mg tablet,extended 180 mg PO Q12H 02/06/19 Unknown History release epinephrine 0.3 mg/0.3 mL 0.3 ml IM ONCE PRN Anaphylaxis 02/07/19 Unknown History injection, auto-injector medroxyprogesterone 150 mg/mL 150 mg IM [id number] 02/07/19 Unknown History intramuscular suspension (Depo-Provera) cariprazine 1.5 mg capsule 1.5 mg PO QHS 04/04/20 Unknown History diltiazem HCl 240 mg 240 mg PO Q24H 02/09/22 Unknown History capsule,extended release 24 hr metoprolol tartrate 50 mg tablet 100 mg PO BID 02/09/22 Unknown History dulaglutide 4.5 mg/0.5 mL 4.5 mg subcut .weekly 05/16/24 Unknown History subcutaneous pen injector ([facility]) ergocalciferol (vitamin D2) 1,250 1,250 mcg PO QWEEK 05/16/24 Unknown History mcg (50,000 unit) capsule ferrous sulfate 325 mg (65 mg 325 mg PO DAILY 05/16/24 Unknown History iron) tablet (FeroSul) Allergy/AdvReac Type Severity Reaction Status Date / Time amoxicillin Allergy Anaphylaxis Verified 05/16/24 17:59 Penicillins Allergy Anaphylaxis Verified 05/16/24 17:59 spider venom Allergy Swelling Verified 05/16/24 17:59 sunflower seed Allergy Pain in Verified 05/16/24 17:59 joints venom-honey bee Allergy Anaphylaxis Verified 05/16/24 17:59 vancomycin AdvReac Itching Verified 05/16/24 17:59 and redness Family History Father CAD (coronary artery disease) stents Other Alcoholism /alcohol abuse Anemia Angina at rest Anxiety Anxiety and depression Arthritis Asthma Breast cancer CVA (cerebral vascular accident) Cancer Diabetes Heart disease High cholesterol Hypertension Psychiatric care Seizures Severe allergy Suicide attempt Thyroid disorder Surgical History History of carpal tunnel release of both wrists History of foot surgery History of tonsillectomy History of wisdom tooth extraction Social History Smoking Status: Never smoker alcohol intake: current substance use type: does not use additional social history: does take aspirin as needed does take ibuprofen as needed EXAM Physical Exam Const Vital Signs: 05/16/24 17:59 05/16/24 18:15 05/16/24 18:58 Temperature 96.1 F L Temperature Source Temporal Pulse Rate 110 H 106 H Respiratory Rate 22 H 22 H Blood Pressure 148/90 H 133/83 H Blood Pressure Mean 109 99 Pulse Ox 97 97 Oxygen Delivery Method Room Air Room Air Room Air 05/16/24 19:00 05/16/24 20:00 05/16/24 21:00 Temperature Temperature Source Pulse Rate 106 H 102 H 105 H Respiratory Rate 22 H 22 H 23 H Blood Pressure 133/83 H 128/92 H 124/83 H Blood Pressure Mean 99 104 96 Pulse Ox 97 98 97 Oxygen Delivery Method Room Air Room Air Room Air MDM MDM MDM Narrative Medical decision making narrative: HISTORY OF PRESENT ILLNESS: 29-year-old female history of depression/anxiety presents with chest pain. Notes chest heaviness with stabbing pains worse with movement and inhalation. She notes this began this morning. Also complains of shortness of breath. Notes history of SVT. Denies any sick contacts. Denies cough fever chills. Denies leg swelling. Denies any VTE risk factors (the patient denies recent surgery in the last 4 weeks or immobilization in the last 3 days, denies previous diagnosis of DVT or PE, hemoptysis, unilateral leg swelling or malignancy with treatment the last 6 months or palliative. No estrogen use noted.). Patient denies sudden onset of pain, no tearing sensation, no migratory symptoms, no new numbness, weakness or loss of sensation. Patient denies family history or personal history of Connective tissue disorders (Marfan's Syndrome, Naty Danlos etc). Denies falls or trauma. Denies abdominal pain. Does note nausea but denies vomiting or diarrhea. REVIEW OF SYSTEMS: Pertinent positives: Chest pain Pertinent negatives: Syncope, focal weakness, leg swelling, bleeding diathesis PHYSICAL EXAM: Nursing triage notes reviewed, Vital signs reviewed Constitutional: please see mdm HENT: MMM Eyes: Pupils equal round and reactive to light, Extraocular muscles intact Neck: No stridor, no JVD, full neck ROM Lungs: Clear to auscultation, No wheezing or rales. No increased work of breathing, no conversational dyspnea, no accessory muscle use, no nasal flaring. No respiratory distress noted Heart: Slightly fast rate but regular rhythm, No murmurs, No rubs and No gallops, 2+ distal pulses (radial, femoral, posterior tibial) in all extremities Abdomen: Soft, there is no tenderness, rigidity, rebound or guarding, no obvious peritoneal signs, no palpable pulsatile abdominal masses, no auscultated abdominal bruit : No CVAT Extremities: No edema Neuro: No new focal neurological deficits, cranial nerves II through XII intact, 5/5 strength in all present extremities. Intact sensation to light touch in all present extremities, 2+ reflexes bilateral patella tendons. Skin: No rash or lesions noted MEDICAL DECISION MAKING: Chief Complaint: Chest pain, shortness of breath External records reviewed: Reviewed prior Holter monitor report from 2018 which showed normal sinus rhythm with episodes of marked sinus tachycardia but no runs noted, no A-fib noted. Reviewed prior echocardiogram 2018 which showed ejection fraction of 58% Factors affecting care: As per HPI Social determinants of health: Denies illicit drug use History obtained from others: Significant other Consults: none [facility] Narrative: Patient was initially tachycardic and rate of 110, tachypneic rate of 22, slightly hypertensive with a blood pressure 140/90, saturating well on room air. Exam without focal cardiopulmonary abnormalities. I considered the following differential diagnosis: Arrhythmia, anemia, electro disturbance, ACS, PE ALL IMAGES (IF OBTAINED) HAVE BEEN PERSONALLY REVIEWED AND INTERPRETED BY MYSELF. EKG with sinus tachycardia rate of 107, normal axis, normal intervals, no STEMI CBC with leukocytosis suggestive of systemic inflammation, no anemia or thrombocytopenia High-sensitivity troponin is negative, no evidence of myocardial ischemia D-dimer elevated consistent with increased clot breakdown CTA of the chest is negative for PE BMP without evidence of significant electrolyte abnormalities, no anion gap, no acute kidney injury. I have personally reviewed the patient's chest x-ray. Chest x-ray is unremarkable for pulmonary edema, pneumothorax, pneumonia or focal cardiopulmonary abnormality. Delta troponin negative The synthesis of the patient's history, physical exam, labs image suggest no acute life or limb threatening etiology specifically no sign of PE, ACS, arrhythmia, anemia, significant electrolyte disturbance. The etiology of patient's presentation remains unclear. She is appropriate for discharge with close outpatient follow-up. The patient and/or family, caregivers express understanding. The patient and/or family, caregivers agrees with the plan. Shared decision making: I will have a discussion with the patient and or visitors regarding risk/benefits of further testing or admission. They will be made aware of of the risk/benefits inherent in this decision they will be given the opportunity to voice understanding. Total critical care time today provided was at least 0 minutes. This excludes separately billable procedures. Critical care time (if documented) is secondary to the patient having high probability of clinically significant/life threatening deterioration in the patient's condition which required my urgent intervention. Impression: 1. Chest pain 2. Tachycardia Dispo: Discharge home This note was generated with [employer] dictation software. It may contain incorrect words, spelling, and punctuation that were not noted in review of the chart prior to signing. Lab Data Labs: Laboratory Results - last 24 hr 05/16/24 05/16/24 05/16/24 18:28 19:20 20:42 WBC 13.8 H RBC 5.16 Hgb 14.6 Hct 45.0 MCV 87.2 MCH 28.3 MCHC 32.4 RDW Std Deviation 44.6 H RDW Coeff of Gladys 14.1 Plt Count 370 MPV 10.5 Immature Gran % (Auto) 0.500 Neut % (Auto) 87.4 H Lymph % (Auto) 6.0 L [place] % (Auto) 4.1 Eos % (Auto) 1.6 Baso % (Auto) 0.4 Absolute Neuts (auto) 12.0 H Absolute Lymphs (auto) 0.83 Nucleated RBC % 0 D-Dimer Quant (PE/DVT) 0.68 H* Sodium 137 Potassium 4.6 Chloride 104 Carbon Dioxide 26.0 Anion Gap 7 BUN 9 Creatinine 1.00 Estim Creat Clear Calc 130.16 Est GFR (MDRD) Af Amer 83 Est GFR (MDRD) Non-Af 69 BUN/Creatinine Ratio 9.0 L Glucose 114 H Calcium 9.4 Troponin I High Sens < 3 L < 3 L Radiography Diagnostic Testing: Clinical Impression(s) from Imaging Studies Chest X-Ray 05/16/24 18:39 IMPRESSION: NEGATIVE CHEST. Reading Location: [id number] Chest CTA 05/16/24 20:00 IMPRESSION: No acute process. One or more dose reduction techniques were used (e.g., Automated exposure control, adjustment of the mA and/or kV according to patient size, use of iterative reconstruction technique). Reading Location: [facility] Discharge Plan Triage Chief Complaint: Chest Pain ED Provider: Delbert Adams Dx/Rx/DC Orders Prescriptions: No Action medroxyprogesterone [Depo-Provera] 150 mg/mL suspension 150 mg IM [id number] epinephrine 0.3 mg/0.3 mL auto-injector 0.3 ml IM ONCE PRN (Reason: Anaphylaxis) quetiapine [Seroquel] 25 mg tablet 25 mg PO QHS verapamil 180 mg tablet extended release 180 mg PO Q12H duloxetine 60 MG capsule 60 mg PO DAILY fexofenadine 60 MG tablet 60 mg PO BID PRN PRN (Reason: Allergies) fluticasone propionate 1 SPRAY spray,suspension 1 spray NASAL BID PRN PRN (Reason: Allergies) bupropion HCl 150 MG tablet extended release 24 hr 150 mg PO DAILY cariprazine 1.5 MG capsule 1.5 mg PO QHS diltiazem HCl 240 mg capsule,extended release 24hr 240 mg PO Q24H metoprolol tartrate 50 mg tablet 100 mg PO BID Trulicity 4.5 mg/0.5 mL pen injector 4.5 mg SUBCUT .weekly Patient Comments: [NO ORIGINAL SIG] ferrous sulfate [FeroSul] 325 mg (65 mg iron) tablet 325 mg PO DAILY Patient Comments: [NO ORIGINAL SIG] ergocalciferol (vitamin D2) 1,250 mcg (50,000 unit) capsule 1,250 mcg PO QWEEK Primary Care Provider: Rebel Justice Referrals: Rebel Justice MD [Primary Care Provider] - Print Language: Brazilian
--- NOTE | 2024-05-16 18:39 | RAD_ITS ---
PROCEDURE: CHEST 1 VIEW (PORTABLE) REASON FOR EXAM: 29-year-old female, chest pain, worse with movement or inhalation, shortness of breath. TECHNIQUE: Frontal view of the chest. COMPARISON: None. FINDINGS: The heart size is normal. The lungs are clear. No focal consolidation, pleural effusion or pneumothorax. The bones are unremarkable. RAD/Chest 1 View (Portable) IMPRESSION: NEGATIVE CHEST. Reading Location: [id number]
[2024-05-16 18:40] LABS: Absolute Lymphocyte Count 0.83 X10^3/uL (0.83-4.51); Basophil# 0.06 X10^3/uL; Basophil% 0.4 % (0-1); Eosinophil# 0.22 X10^3/uL; Eosinophils% 1.6 % (0-5); Hemoglobin 14.6 g/dL (12.0-15.0); Lymphocyte # 0.83 X10^3/ul (0.83-4.51); Mean Corp Hgb Conc 32.4 g/dL (32-36); Mean Corpuscular Hgb 28.3 pg (27.0-32.0); Mean Corpuscular Volume 87.2 fL (81-99); Mean Platelet Vol. 10.5 fl (6.2-12.0); Monocyte# 0.57 X10^3/uL; Monocyte% 4.1 % (0-10); NRBC Flagged by Analyzer 0 % (0-5); Neutrophil # 12.04 X10^3/uL (2.7-7.7); Neutrophil % 87.4 % (47-70); Platelet Count 370 K/mm3 (150-450); RBC Distribution Width CV 14.1 % (11.6-14.6); RBC Distribution Width SD 44.6 fl (35.1-43.9); Red Blood Count 5.16 M/mm3 (4.2-5.4); White Blood Count 13.8 K/mm3 (4.4-11.0)
[2024-05-16 18:58] VITALS: BP 133/83; PULSE 106; RESP 22; O2SAT 97
[2024-05-16 19:00] VITALS: BP 133/83; PULSE 106; RESP 22; O2SAT 97
[2024-05-16] MEDS: 0.9% Normal Saline (1000mL) 1,000 ML 999 ML IV (19:22)
[2024-05-16] MEDS: Metoclopramide 10 MG/2 ML Vial 5 MG IV (19:22)
[2024-05-16 19:34] LABS: Anion Gap 7 (5-15); BUN 9 mg/dL (7-18); Calcium,Total 9.4 mg/dL (8.5-10.1); Chloride 104 mmol/L (98-107); EST Glomerular Filtration Rate 69 mL/min (>60); Est Glom Filt Rate - Afr Amer 83 mL/min (>60); Estimated Creatinine Clearance 130.16 ml/min; Glucose 114 mg/dL (74-106); Potassium 4.6 mmol/L (3.5-5.1); Sodium Level 137 mmol/L (136-145); Troponin-I HS (w/2H Reflex) < 3 pg/mL (3.0-54.0)
[2024-05-16 19:52] LABS: D-Dimer Quantitative (DVT/PE) 0.68 FEU/ug/m (0.27-0.49)
[2024-05-16 20:00] VITALS: BP 128/92; PULSE 102; RESP 22; O2SAT 98
--- NOTE | 2024-05-16 20:00 | CT_ITS ---
PROCEDURE: CTA chest REASON FOR EXAM: 05/16/2024 TECHNIQUE: Multiple contiguous axial images of the chest were obtained after the administration of intravenous contrast. Two-dimensional and three-dimensional MIP coronal and sagittal reformatted images were reconstructed. Low-dose imaging technique was utilized. COMPARISON: None. FINDINGS: Heart size is within normal limits. No significant coronary artery calcifications or pericardial effusion. Normal caliber thoracic aorta without dissection. Normal caliber pulmonary arteries without filling defects. No suspicious adenopathy. No acute findings in the visualized upper abdomen. Superficial soft tissues are within normal limits. Central airways are patent. No acute infiltrates, pleural effusion or pneumothorax. No suspicious pulmonary nodule or mass. No acute osseous abnormality. CT/CTA Chest W/WO Contrast IMPRESSION: No acute process. One or more dose reduction techniques were used (e.g., Automated exposure contr ol, adjustment of the mA and/or kV according to patient size, use of iterative reconstruction technique). Reading Location: [facility]
[2024-05-16 20:34] LABS: Reflex Troponin-HS? (from REC) Y
[2024-05-16 21:00] VITALS: BP 124/83; PULSE 105; RESP 23; O2SAT 97
[2024-05-16 21:28] LABS: Troponin-I HS < 3 pg/mL (3.0-54.0)
[2024-05-16 21:38] VITALS: BP 124/83; PULSE 105; RESP 22; TEMP 37.2; O2SAT 97
== END 2024-05-16 21:42 | disposition home or self-care (01) ==
PROVIDERS: Emergency Provider Emergency Medicine; PCP Family Medicine; Visit Provider Emergency Medicine
DX: R07.9 Chest pain, unspecified (principal); R00.0 Tachycardia, unspecified; R11.0 Nausea; F32.A Depression, unspecified; F41.9 Anxiety disorder, unspecified; Z79.85 Long-term (current) use of injectable non-insulin antidiabetic drugs; Z79.899 Other long term (current) drug therapy
CPT/HCPCS: 71045; 71275; 80048; 84484; 85025; 85379; 93005; 96361; 96374; 99285; Q9967; A4216